=== PATIENT | female | born 1980 | race Caucasian/White ===

== ENCOUNTER 2025-07-14 13:24 | Emergency (ER) | payer OTHER, SELFPAY ==
[2025-07-14 13:24] VITALS: BP 118/103; PULSE 108; RESP 22; TEMP 36.4; O2SAT 99; BMI 34.9
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
[2025-07-14 14:52] VITALS: BP 105/53; PULSE 90; RESP 18; TEMP 36.6; O2SAT 99
--- NOTE | 2025-07-14 14:59 | ED.RN ---
PT. REQUESTED WORK NOTE FOR TIME IN DEPARTMENT FOR THE PT. WORK NOTE PROVIDED TO .
== END 2025-07-14 14:53 | disposition home or self-care (01) ==
LOC: ED 14:02
PROVIDERS: Emergency Provider Emergency Medicine; Visit Provider Emergency Medicine
DX: T24.122A Burn of first degree of left knee, initial encounter (principal); T23.192A Burn of first degree of multiple sites of left wrist and hand, initial encounter; X12.XXXA Contact with other hot fluids, initial encounter; F41.9 Anxiety disorder, unspecified; Z79.899 Other long term (current) drug therapy
CPT/HCPCS: 99282